=== PATIENT | female | born 1955 | race Two or more races ===

== ENCOUNTER 2022-08-13 09:50 | Outpatient (CLI) | payer MEDICARE, OTHER | END 2022-08-13 23:59 | disposition home or self-care (01) | LOC: WOU 09:50 | PROVIDERS: ATTEND Podiatrist Foot & Ankle Surgery | DX: L60.0 Ingrowing nail (principal); L60.2 Onychogryphosis; B35.1 Tinea unguium; M79.675 Pain in left toe(s); M79.674 Pain in right toe(s); E11.9 Type 2 diabetes mellitus without complications; Z79.84 Long term (current) use of oral hypoglycemic drugs; Z79.82 Long term (current) use of aspirin | CPT/HCPCS: G0463 ==